=== PATIENT | male | born 1945 | race Caucasian/White ===

== ENCOUNTER 2020-01-16 12:59 | Emergency (ER) | payer OTHER, SELFPAY ==
[2020-01-16 13:14] VITALS: BP 133/88; PULSE 83; RESP 22; TEMP 36.8; O2SAT 97
--- NOTE | 2020-01-16 13:41 | PC.NURSE ---
pt reports leak from small pinhole in mai catheter leg bag for several days, requesting replacement bag. He denies pain/discomfort/fever/injury/illness or other complaints. Mai is draining pale clear nancy urine. Bag replaced per order.
--- NOTE | 2020-01-16 13:42 | ED.MALEGU ---
HPI - Male Genitourinary <ANJANA Alanis - Last Filed: 01/16/20 18:35> General Chief complaint: Urogenital-Male Stated complaint: Needs Cath Bag Replaced, Sent From Urology Time Seen by Provider: 01/16/20 13:21 Source: patient Mode of arrival: Ambulatory History of Present Illness HPI Narrative: 74yo male presents to the emergency department as his catheter bag has been leaking. Patient denies any catheter pain, urethra pain, penis pain, discharge, fevers, chills, nausea, vomiting, diarrhea other concerns. He states he has had the catheter for the past 11 months. Related Data Allergies Allergy/AdvReac Type Severity Reaction Status Date / Time No Known Drug Allergies Allergy Verified 01/16/20 13:16 Review of Systems <ANJANA Alanis - Last Filed: 01/16/20 18:35> Review of Systems Narrative: REVIEW OF SYSTEMS: GENERAL: Denies fever or chills. HENT: No head trauma. CARDIOVASCULAR: No chest pain. RESPIRATORY: No shortness of breath or cough. GASTROINTESTINAL: No nausea, vomiting, or abdominal pain. GENITOURINARY: Denies dysuria. States catheter bag is leaking, see HPI. MUSCULOSKELETAL: No trauma. INTEGUMENTARY: No rash, lesions, or pruritus. NEURO: No memory loss or confusion. Patient History <ANJANA Alanis - Last Filed: 01/16/20 18:35> Medical History No significant medical problems (Acute) Social History Smoking Status: Former smoker Smoking Status: Former smoker Exam <ANJANA Alanis - Last Filed: 01/16/20 18:35> Initial Vital Signs Initial Vital Signs: Vital Signs Temperature 98.3 F 01/16/20 13:14 Pulse Rate 83 01/16/20 13:14 Respiratory Rate 22 01/16/20 13:14 Blood Pressure 133/88 01/16/20 13:14 Pulse Oximetry 97 01/16/20 13:14 PHYSICAL EXAMINATION: GENERAL: Well groomed, alert, and cooperative. Answers questions promptly and appropriately. Vital signs noted. HENT: Normocephalic, atraumatic. Hearing intact. EYES: No periorbital swelling. CARDIOVASCULAR: Regular rate. RESPIRATORY: Normal respiratory rate, trachea midline, airway patent. No stridor, nasal flaring or accessory muscle use. GASTROINTESTINAL: Bowel sounds normoactive. Abdomen is soft and non-tender. No organomegaly, no palpable masses. GENITALURINARY: No CVA tenderness. MUSCULOSKELETAL: Normal gait and coordination. Equal tone and mass bilaterally. SKIN: Warm, dry, soft, appropriate color for ethnicity. No lesions, rashes, or wounds to visulized areas. NEURO: Alert and Oriented X 3. Good coordination. No ataxia, or sensory deficits, or cognitive issues. PSYCH: Appropriate affect and mood. <Jan Gamble MD - Last Filed: 01/16/20 18:53> Initial Vital Signs Initial Vital Signs: Vital Signs Temperature 98.3 F 01/16/20 13:14 Pulse Rate 83 01/16/20 13:14 Respiratory Rate 22 01/16/20 13:14 Blood Pressure 133/88 01/16/20 13:14 Pulse Oximetry 97 01/16/20 13:14 Course <ANJANA Alanis - Last Filed: 01/16/20 18:35> Vital Signs Vital signs: Vital Signs - 8 hr 01/16/20 13:14 Temperature 98.3 F Pulse Rate 83 Respiratory Rate 22 Blood Pressure 133/88 Pulse Oximetry 97 <Jan Gamble MD - Last Filed: 01/16/20 18:53> Vital Signs Vital signs: Vital Signs - 8 hr 01/16/20 13:14 Temperature 98.3 F Pulse Rate 83 Respiratory Rate 22 Blood Pressure 133/88 Pulse Oximetry 97 [facility] - Male Genitourinary <ANJANA Alanis - Last Filed: 01/16/20 18:35> Medical Records Attestation: I reviewed the patient's medical records. Lab Data Attestation: I reviewed the patient's lab results. [facility] Narrative Medical decision making narrative: 74 yo male presents to the emergency department for any new catheter bag. He denies any symptoms or any other complaints. Vital signs are within normal limits, he is hemodynamically stable and well-appearing. Catheter bag was changed out, he was discharged. Return precautions given for new or worsening symptoms. Patient agreed plan of care verbalized understanding. Discharge Plan Departure Patient Disposition: Home Clinical Impression: Gu catheter problem Qualifiers: Encounter type: initial encounter Qualified Code(s): T83.9XXA - Unspecified complication of genitourinary prosthetic device, implant and graft, initial encounter Discharge Date/Time: 01/16/20 13:43 Activity Restrictions/Additional Instructions: Thank you for entrusting me with your care today. As discussed, your catheter bag has been replaced today. Follow-up with your primary care provider or urologist as scheduled. Return emergency department for any new or worsening symptoms. Referrals: Michael Rich [Primary Care Provider] -
== END 2020-01-16 13:43 | disposition home or self-care (01) ==
PROVIDERS: Emergency Provider Nurse Practitioner; PCP Ophthalmology; Referring Provider Specialist
DX: T83.9XXA Unspecified complication of genitourinary prosthetic device, implant and graft, initial encounter (principal)
CPT/HCPCS: 99281